=== PATIENT | male | born 1995 | race African-American/Black ===

== ENCOUNTER 2018-09-05 23:30 | Emergency (ER) | payer SELFPAY ==
[~2018-09-05] VITALS: Ht 177.8 cm; Wt 72.7 kg
[2018-09-05 23:36] VITALS: Ht 177.8 cm; Wt 72.7 kg
--- NOTE | 2018-09-05 23:40 | ERD ---
ER Documentation Chief Complaint Chief Complaint [place]IB [place] HPI The patient is a 23-year-old male, presenting to the ER because he was found naked on the street, very confused. Initially he was unable or did not want to provide any history. The history is very limited Past medical/surgical history/social history/review of system: Unable to obtain due to his condition Medications Home Meds Reported Medications Valproic Acid* (Depakene*) 250 Mg Capsr, 250 MG PO Q8, #90 CAP 09/06/18 Risperidone* (Risperdal*) 1 Mg Tablet, 5 MG PO DAILY, TAB 09/06/18 Promethazine Hcl* (Phenergan*) 25 Mg Tablet, 25 MG PO Q6H PRN for COUGH, TAB 09/06/18 Allergies Allergies: Coded Allergies: No Known Allergy (Unverified , 09/06/18) Physical Exam Vitals Vital Signs Date Temp Pulse Resp B/P (MAP) Pulse Ox O2 O2 Flow FiO2 Time Delivery Rate 09/06/18 98.2 70 16 132/70 98 Room Air 17:20 (90) 09/06/18 69 16 129/68 98 Room Air 11:55 (88) 09/06/18 72 16 126/73 97 Room Air 06:35 (90) 09/06/18 98.0 48 15 137/83 99 Room Air 01:33 (101) 09/05/18 98.0 58 15 133/89 99 Room Air 23:51 (104) 09/05/18 98.0 46 15 136/80 99 23:36 (98) Physical Exam Const: No acute distress. Head: Atraumatic. Eyes: Normal Conjunctiva. ENT: Normal External Ears, Nose and Mouth. Neck: Full range of motion. No meningismus. Resp: Clear to auscultation bilaterally. Cardio: Regular rate and rhythm. Abd: Soft, non distended, normal bowel sounds, non tender. Skin: No petechiae or rashes. Back: No midline or flank tenderness. Ext: No cyanosis, or edema. Neur: Awake and alert. No focal deficit Psych: psychotic Result Diagram: 09/06/18 0047 09/06/18 0047 Results 24 hrs Laboratory Tests Test 09/05/18 07:38 09/06/18 00:47 09/06/18 07:38 Urine Color AKUA Urine Clarity CLEAR Urine pH 5.0 Urine Specific [place] 1.036 Urine Ketones 1+ mg/dL Urine Nitrite NEGATIVE mg/dL Urine Bilirubin NEGATIVE mg/dL Urine Urobilinogen 2+ mg/dL Urine Leukocyte Esterase NEGATIVE [place]/ul Urine Hemoglobin NEGATIVE mg/dL Urine Glucose NEGATIVE mg/dL Urine Total Protein NEGATIVE mg/dl White Blood Count 5.0 10^3/ul Red Blood Count 4.68 10^6/ul Hemoglobin 13.7 g/dl Hematocrit 43.5 % Mean Corpuscular Volume 92.9 fl Mean Corpuscular Hemoglobin 29.3 pg Mean Corpuscular 31.5 g/dl Hemoglobin Concent Red Cell Distribution Width 14.0 % Platelet Count 197 10^3/UL Mean Platelet Volume 11.3 fl Immature Granulocytes % 0.200 % Neutrophils % 41.4 % Lymphocytes % 46.5 % Monocytes % 9.1 % Eosinophils % 2.2 % Basophils % 0.6 % Nucleated Red Blood Cells % 0.0 /100WBC Immature Granulocytes # 0.010 10^3/ul Neutrophils # 2.1 10^3/ul Lymphocytes # 2.3 10^3/ul Monocytes # 0.5 10^3/ul Eosinophils # 0.1 10^3/ul Basophils # 0.0 10^3/ul Nucleated Red Blood Cells # 0.0 10^3/ul Sodium Level 142 mmol/L Potassium Level 4.1 mmol/L Chloride Level 107 mmol/L Carbon Dioxide Level 25 mmol/L Anion Gap 10 Blood Urea Nitrogen 14 mg/dl Creatinine 1.02 mg/dl Est Glomerular Filtrat > 60 mL/min Rate mL/min Glucose Level 70 mg/dl Calcium Level 9.7 mg/dl Total Bilirubin 0.5 mg/dl Direct Bilirubin 0.00 mg/dl Indirect Bilirubin 0.5 mg/dl Aspartate Amino 31 IU/L Transf (AST/SGOT) Alanine 20 IU/L Aminotransferase (ALT/SGPT) Alkaline Phosphatase 75 IU/L Total Protein 7.3 g/dl Albumin 4.1 g/dl Globulin 3.20 g/dl Albumin/Globulin Ratio 1.28 Salicylates Level < 1.0 mg/dl Acetaminophen Level < 10.0 ug/ml Ethyl Alcohol Level < 10.0 mg/dl Urine Opiates Screen Negative Urine Barbiturates Negative Urine Amphetamines Screen Negative Urine Benzodiazepines Screen Negative Urine Cocaine Screen Negative Urine Cannabinoids Positive Current Medications Medications Dose Sig/Lizabeth Start Time Status Last (Trade) Ordered Route PRN Stop Time Admin Dose Reason Admin Olanzapine 5 mg ONCE ONCE 09/06/18 DC 09/06/18 (Zyprexa) PO 10:00 09:58 09/06/18 10:01 Procedures/MDM [place] [id number] [place] [id number] Radiology Main Line: [phone] DIAGNOSTIC IMAGING REPORT Patient: ELIO YIP : 1995 Age: 23 Sex: M MR #: [id number] DOS: 09/05/18 2340 Ordering MD: JOSE SABILLON MD Location: E/R Room/Bed: PROCEDURE: CT Brain without contrast. CLINICAL INDICATION: Altered mental status. TECHNIQUE: A CT of the brain without contrast was performed utilizing axial sections from the skull base through the vertex. One or more the following does reduction techniques were utilized: Automated exposure control, adjustment of the mA/ or kV according to patient's size, or use of iterative reconstruction technique. Total exam CTDIvol is 38 MGy and DLP is 634 mGy-cm. DICOM images are available. COMPARISON: None available. FINDINGS: The ventricles and sulci are age-appropriate. There is no intracranial hemorrhage, mass effect or midline shift. No abnormal intra-axial or extra- axial fluid collections are seen. The weston/white matter differentiation is preserved. No acute skull abnormality is noted. The visualized paranasal sinuses demonstrate partial opacification of the right sphenoid sinus as well as focal opacification in the right ethmoid air cells and left sphenoid sinus. The mastoid air cells are essentially clear. IMPRESSION: 1. No acute intracranial hemorrhage, transcortical infarction or mass effect. RPTAT: HFN .Rosaura Rooney MD, MD Date Time Electronically viewed and signed by .Rosaura Rooney MD, MD on 09/06/2018 01:05 .N/ CC: JOSE SABILLON MD [id number] [facility] [id number] [place] [address] Radiology Main Line: [phone] DIAGNOSTIC IMAGING REPORT Patient: ELIO YIP : 1995 Age: 23 Sex: M MR #: [id number] DOS: 09/05/18 2340 Ordering MD: JOSE SABILLON MD Location: E/R Room/Bed: PROCEDURE: XR Chest. CLINICAL INDICATION: Altered level of consciousness. TECHNIQUE: Single frontal view of the chest. COMPARISON: None. FINDINGS: The cardiomediastinal silhouette is within normal limits. Recommend CT examination the chest for further evaluation of 19 mm nodular density in the right mid lung. The lungs are otherwise clear. No signs of pleural fluid or pneumothorax are seen. The osseous structures and soft tissues are unremarkable. IMPRESSION: 1. Recommend CT examination of the chest for further evaluation of 19 mm nodular density in the right mid lung. 2. Otherwise, no evidence for active cardiopulmonary disease. RPTAT: [facility] Physician Rach Date Time Electronically viewed and signed by Physician Rach on 09/06/2018 02:37 RS/ CC: JOSE SABILLON MD [id number] Read by emergency physician Rate/Rhythm: sinus bradycardia 44 beats/min QRS, ST, T-waves: No ST elevation, inferior anterior T abnormality Impression: abnormal EKG UDS Pending MEDICAL MAKING DECISION: The patient is a 23-year-old male, presenting with acute psychosis, stable bradycardia The differential diagnoses considered include but are not limited to drug- induced psychosis, decompensated psychiatric illness, substance abuse Consultation: The patient was evaluated by telepsychiatrist who recommended 5150 hold Departure Diagnosis: Primary Impression: Psychosis Condition: Stable Comments The patient's blood pressure was elevated (>120/80) but appears stable without evidence of hypertension emergency or urgency. The patient was counseled about the risks of hypertension and urged to pursue outpatient monitoring and therapy within a week with their primary care physician. He is clear for psychiatric admission JOSE SABILLON MD Sep 05, 2018 23:40
[2018-09-06] MEDS ORDERED: VALP250C3 PO (04:05)
[2018-09-06] MEDS ORDERED: RISP-7 PO (04:05)
[2018-09-06] MEDS ORDERED: PROM25TA14 PO (04:05)
--- NOTE | 2018-09-06 06:28 | PSY ---
Date/Time of Note Date/Time of Note DATE: 09/06/18 TIME: 09:24 Psychiatric Subjective Eval Consent Pt consented to telemedicine: Yes Subjective Evaluation Patient location: emergency Chief Complaint: BIB RA for ALOC, [place] History of present illness HPI: 23 yo male with unclear psych hx. Per nurse, pt was found nearly naked (had shirt or sweater tied around waist) walking around saying he was being followed and someone was going to kill him, then went into subway station and when they said they were closed he laid on ground. Was taken to ED. In ED has been calm but disorganized. tried to speak with pt. He was very disorganized, mostly word salad, after 10-20 seconds of word salad, closed eyes and pretended to sleep. Came in without a name then said his name is isaias johnson. Past Psych Hx: unable to obtain PMHx, allergies, Meds: unable to obtain MSE: casually groomed, uncooperative, word salad, flat affect, unable to asses si/hi Imp: 23 yo male gravely disabled 5150 psych admit utox For moderate agitation Zyprexa 5mg po prn For severe agitation chlorpromazine 25mg im prn Medical history Problems Medical Problems: (1) Substance abuse Status: Acute Allergies: Coded Allergies: No Known Allergy (Unverified , 09/06/18) Psychiatric Objective Eval Mental Status Examination: Laboratory Results Laboratory Tests Test 09/06/18 00:47 White Blood Count 5.0 10^3/ul Red Blood Count 4.68 10^6/ul Hemoglobin 13.7 g/dl Hematocrit 43.5 % Mean Corpuscular Volume 92.9 fl Mean Corpuscular Hemoglobin 29.3 pg Mean Corpuscular Hemoglobin Concent 31.5 g/dl Red Cell Distribution Width 14.0 % Platelet Count 197 10^3/UL Mean Platelet Volume 11.3 fl Immature Granulocytes % 0.200 % Neutrophils % 41.4 % Lymphocytes % 46.5 % Monocytes % 9.1 % Eosinophils % 2.2 % Basophils % 0.6 % Nucleated Red Blood Cells % 0.0 /100WBC Immature Granulocytes # 0.010 10^3/ul Neutrophils # 2.1 10^3/ul Lymphocytes # 2.3 10^3/ul Monocytes # 0.5 10^3/ul Eosinophils # 0.1 10^3/ul Basophils # 0.0 10^3/ul Nucleated Red Blood Cells # 0.0 10^3/ul Sodium Level 142 mmol/L Potassium Level 4.1 mmol/L Chloride Level 107 mmol/L Carbon Dioxide Level 25 mmol/L Anion Gap 10 Blood Urea Nitrogen 14 mg/dl Creatinine 1.02 mg/dl Est Glomerular Filtrat Rate mL/min > 60 mL/min Glucose Level 70 mg/dl Calcium Level 9.7 mg/dl Total Bilirubin 0.5 mg/dl Direct Bilirubin 0.00 mg/dl Indirect Bilirubin 0.5 mg/dl Aspartate Amino Transf (AST/SGOT) 31 IU/L Alanine Aminotransferase (ALT/SGPT) 20 IU/L Alkaline Phosphatase 75 IU/L Total Protein 7.3 g/dl Albumin 4.1 g/dl Globulin 3.20 g/dl Albumin/Globulin Ratio 1.28 Salicylates Level < 1.0 mg/dl Acetaminophen Level < 10.0 ug/ml Ethyl Alcohol Level < 10.0 mg/dl Assessment and Plan Recommendation/Plan Multiple antipsychotics: No Discharge Disposition: Psychiatric inpatient Legal Status: Place involuntary hold TEVIN NOVAK Sep 06, 2018 06:28
[2018-09-06] MEDS ORDERED: OLANZAPINE 5 MG TAB PO ONE (10:00)
[2018-09-06 17:20] VITALS: BP 132/70; PULSE 70; RESP 16
== END 2018-09-06 22:32 ==
LOC: E/R 23:30 → EDBD 23:30 → E/R 09-06 22:32
DX: F29 Unspecified psychosis not due to a substance or known physiological condition (principal); R40.2142 Coma scale, eyes open, spontaneous, at arrival to emergency department; R40.2362 Coma scale, best motor response, obeys commands, at arrival to emergency department; R40.2252 Coma scale, best verbal response, oriented, at arrival to emergency department
CPT/HCPCS: 70450; 71045; 80053; 80307; 81003; 85025; 93005